=== PATIENT | male | born 1940 | race Caucasian/White ===

== ENCOUNTER → 2017-09-06 | Outpatient (CLI) | payer BC ==
[2017-09-06 12:31] LABS: ALBUMIN 3.7 gm/dl (3.4-5.0); ALT/SGPT 41 U/L (12-78); BLOOD UREA NITROGEN 21 mg/dl (7-18); CALCIUM 9.1 mg/dl (8.5-10.1); CARBON DIOXIDE 28 mmol/L (21-32); CREATININE 1.16 mg/dl (0.60-1.40); GLUCOSE 159 mg/dl (70-99); POTASSIUM 3.9 mmol/L (3.5-5.1); SODIUM 141 mmol/L (136-145)
[2017-09-06 12:32] LABS: HEMOGLOBIN A1C 5.7 % (4.5-5.6)
[2017-09-06 12:44] LABS: ALKALINE PHOSPHATASE 56 U/L (45-117); AST/SGOT 24 U/L (15-37); CHOLESTEROL 237 mg/dl (0-200); LDL CHOLESTEROL CALCULATED 159 mg/dl; TOTAL PROTEIN 6.9 gm/dl (6.4-8.2)
== END | disposition home or self-care (01) ==
LOC: C.LAB1850 10:58
PROVIDERS: ATTEND Physician Assistant
DX: E11.9 Type 2 diabetes mellitus without complications (principal)

== ENCOUNTER 2021-11-21 16:35 | Inpatient (IN) ==
[2021-11-21] MEDS ORDERED: Heparin IV Adult Wt-Based Standard WITH Bolus Protocol IV SCH (19:52)
[2021-11-21] MEDS ORDERED: Patient's HEIGHT &/or WEIGHT Needed SCH (20:00)
[2021-11-21] MEDS ORDERED: HEPARIN SOD (PORCINE) 1000 UNIT/ML IV ONE ×2 (20:01→20:24)
[2021-11-21] MEDS ORDERED: Heparin IV Adult Wt-Based Low-Dose WITH Bolus Protocol IV STA (20:08)
[2021-11-21] MEDS ORDERED: Heparin IV Adult Wt-Based Low-Dose *NO* Bolus Protocol IV SCH (20:13)
[2021-11-21] MEDS ORDERED: HEPARIN SODIUM/DEXTROSE 25,000 UNITS/500 ML BAG IV SCH ×2 (20:15→20:30)
[2021-11-21] MEDS: HEPARIN SODIUM/DEXTROSE 25,000 UNITS/500 ML BAG IV SCH (20:43)
[2021-11-21 20:52] LABS: Partial Thromboplastin Ratio 1.3; Partial Thromboplastin Time 36.3 Seconds (21.0-31.0)
--- NOTE | 2021-11-21 20:59 | History & Physical Report ---
Date of Service November 21, 2021 Assessment & Plan (1) NSTEMI (non-ST elevated myocardial infarction): Plan: 81yo male with T2DM presents as a transfer from [facility] for NSTEMI. NSTEMI Patient with CP at OSH a/w rising hsTroponin levels, has multiple risk factors VSS, EKG NSR, echo at OSH (11/21/2021) EF 55-59% without overt wall motion abnormalities Transferred to [facility] for PCI with Dr. Díaz Admit to telemetry Heparin gtt per protocol Oxygen, nitrates, analgesia as needed Brillinta 90mg bid Lopressor 50mg bid Of note, patient refused aspirin d/t concern for possible allergy NPO at midnight ahead of scheduled PCI DM2 HbA1c 5.9% (04/2020), repeat value ordered Patient's home regimen held on admission Continue BSG checks, sliding-scale insulin, hypoglycemic protocol HLD Patient with history of HLD which he treats with vitamins/herbs Is resistant to statin therapy, says statins gave him DM2 Repeat fasting lipid profile in AM, revisit conversation with patient based on results FEN: DM2, heart-healthy diet, NPO at midnight Code status: full code DVT ppx: heparin gtt Consults: cardiology Dispo: telemetry (2) Type 2 diabetes mellitus: (3) BPH (benign prostatic hyperplasia): (4) Hyperlipidemia: Admission and Anticipated Discharge Date Admission Date: November 21, 2021 History of Present Illness Primary Care Provider: Yasir Shine MD 81yo male with T2DM presents as a transfer from [facility] for NSTEMI. Yesterday, patient was doing work in his yard when he felt a sudden pain in his right shoulder, about 3/10 in severity, which radiated into his right chest. Patient also experienced some fatigue at the time, and his commented that he looked pale. Patient rested and the pain went away after about an hour. The pain recurred twice more later in the day, both times with the same quality, severity, and duration; however, the second two episodes occurred at rest. Patient monitored his pulse ox and BSG throughout the day and reports these were normal all day. However, out of concern, patient's called EMS, who recommended hospital workup after noting patient was hypertensive to 170/80. At OSH, patient was diagnosed with NSTEMI and then transferred to [facility] on 11/21. Patient notes his symptoms have not returned since the third episode resolved on 11/20. Patient denies fever, chills, SOB, abdominal pain, nausea, vomiting, diarrhea, dysuria, or other symptoms, both now and over the past few days. At OSH: vitals stable, initial troponin 216, repeat one hour later was 247 EKG: NSR Echo (11/21/21 at OSH): LVEF 55-59%, no LV wall motion abnormalities, mild MR, mild TR present At OSH, patient received: Lopressor 50mg bid (final dose 11/21 at 0420) Brillinta 90mg bid (final dose 11/21 at 0818) No aspirin (patient refused, says statins caused him to develop DM2) Allergies Allergy/AdvReac Type Severity Reaction Status Date / Time NSAIDS (Non-Steroidal Allergy Unknown Verified 04/21/21 11:00 Anti-Inflamma latex Allergy Verified 04/21/21 11:00 Home Medications Medication Instructions Recorded Confirmed Type alpha lipoic acid 600 mg capsule 1,200 mg PO DAILY #60 cap 05/05/19 04/21/21 Rx biotin 1 mg capsule 1 mg PO DAILY #30 cap 05/05/19 04/21/21 Rx cholecalciferol (vitamin D3) 25 1,000 units PO DAILY #30 tab 05/05/19 04/21/21 Rx mcg (1,000 unit) chewable tablet coenzyme Q10 100 mg capsule 100 mg PO DAILY #30 cap 05/05/19 04/21/21 Rx (CoQ-10) niacin 500 mg tablet 500 mg PO DAILY #30 tab 05/05/19 04/21/21 Rx vit C,E,zinc,copper-rjbov0p 250 1 cap PO DAILY #30 cap 05/05/19 04/21/21 Rx mg-lutein 5 mg-zeaxanthin 1 mg capsule (Ocuvite Adult 50 Plus) NAD plus PO 04/19/20 04/21/21 History krill oil 500 mg capsule mg PO 04/19/20 04/21/21 History magnesium PO 04/19/20 04/21/21 History potassium 99 mg tablet mg PO 04/19/20 04/21/21 History insulin glargine U-300 conc 300 15 unit SQ PM 90 Days #4.5 ml 03/22/21 04/21/21 Rx unit/mL (1.5 mL) subcutaneous pen (Toujeo SoloStar U-300 Insulin) berberine-herbal comb no.18 capsule cap PO 04/21/21 04/21/21 History flash glucose sensor (FreeStyle #2 ea 05/09/21 Rx Kim 2 Sensor) BD Ultra-Fine Cherri Pen Needle 32 #100 ea NS 06/07/21 Rx gauge x 5/32" (pen needle, diabetic) Past Med/Surg History Medical History (Updated 11/21/21 @ 22:16 by Bob Inman MD) Basal cell carcinoma Chronic sinusitis Hematuria Nasal polyp Rectal polyp Surgical History Status post nasal endoscopy with nasal polypectomy Family History Mother Acute alcohol abuse Father Carotid artery stenosis Stroke Grandmother (Maternal) Diabetes Brother Hyperlipidemia Social History Smoking Status: Never smoker Second Hand Exposure: No; Do You Dip or Chew Tobacco: No; Tobacco Cessation Education Requested by Patient: No Hx Alcohol Use: Yes Alcohol type: beer Hx Substance Use: No Preferred Language: Mozambican Communication Ability: Effective Timber Grader Required: No Beliefs That Will Affect Care: None marital status: Current Living Situation: Spouse Current Living Situation Comment: Home with How many Children do You have: 2 Other Information That Helps Us Care for You: No Feels Safe at Home: Yes Safety Concerns: Feels Safe At This Time Assistive Devices: None Physical Exam Physical Exam: Constitutional: well-appearing, no acute distress CV: regular rhythm, no murmur appreciated, extremities well-perfused, no LE edema Resp: CTABL, no wheezes/rales/rhonchi appreciated, no increased work of breathing GI: soft, nontender MSK: no gross deformities appreciated Skin: warm, dry, no rash appreciated Neuro: alert, oriented, no focal neurologic deficit appreciated Results & Data Results & Data ([facility]) Vital Signs (Past 12 Hours) Vital Signs Temp Pulse Resp BP Pulse Ox 11/21/21 20:08 36.7 C 67 18 128/87 98 Supervising Physician Co-Signing Physician Notes Attending addendum: I have physically seen this patient, have supervised the medical residents activities, and agree with the H&P unless as otherwise noted. Assessment and Plan: NSTEMI- Accepted in transfer from [facility] The patient will be admitted to telemetry for serial cardiac enzymes, serial EKG's, cardiac rhythm monitoring and a 2-D echocardiogram with Dopplers. Continue heparin drip per protocol Lopressor 50 mg p.o. twice daily Brilinta 90 mg p.o. twice daily Consult cardiology Dr. Díaz, who has already accepted the patient Diabetes mellitus- Hold glargine 15 units subcu in the evening Place on Accu-Cheks before meals and at bedtime with NovoLog coverage per scale Remaining orders and notations as noted Resident Activity Tracking Resident Involvement: Resident Care Provided and Job Counselor Coverage Note Care Provided: Adult Hospital Medicine
[2021-11-21] MEDS ORDERED: NITROGLYCERIN SL 0.4 MG/TAB TAB SL PRN (21:40)
[2021-11-21] MEDS ORDERED: ACETAMINOPHEN 325 MG TAB PO PRN (21:40)
[2021-11-21 22:39] LABS: Basophils # (auto) 0.02 K/uL (0-0.2); Basophils % (auto) 0.3 %; Eosinophils # (auto) 0.14 K/uL (0-0.5); Eosinophils % (auto) 1.8 %; Hematocrit (blood only) 43.9 % (42-52); Hemoglobin 15.1 g/dL (14.0-18.0); Immature Granulocytes # (auto) 0.02 K/uL (0.00-0.02); Immature Granulocytes % (auto) 0.3 %; Lymphocytes # (auto) 1.68 K/uL (1.2-3.4); Lymphocytes % (auto) 21.5 %; Mean Corpuscular Hemoglobin 29.9 pg (25-34); Mean Corpuscular Hgb Conc 34.4 g/dL (32-36); Mean Corpuscular Volume 86.9 fL (80-100); Mean Platelet Volume 9.1 fL (7.4-10.4); Monocytes # (auto) 0.57 K/uL (0.11-0.59); Monocytes % (auto) 7.3 %; Neutrophils # (auto) 5.37 K/uL (1.4-6.5); Neutrophils % (auto) 68.8 %; Platelet Count 159 K/uL (130-400); RDW Coefficient of Variation 13.9 % (11.5-14.5); RDW Standard Deviation 43.5 fL (36.4-46.3); Red Blood Count 5.05 M/uL (4.7-6.1)
[2021-11-21] MEDS: METOPROLOL TARTRATE 50 MG TAB PO SCH (23:04)
[2021-11-21] MEDS: TICAGRELOR 90 MG TAB PO SCH (23:04)
[2021-11-21 23:15] LABS: Albumin Globulin Ratio 1.6 (0.9-2); Albumin Level 4.1 gm/dl (3.4-5.0); BUN Creatinine Ratio 13.3 (10-20); Bilirubin,Total 0.5 mg/dl (0.2-1.0); Calcium 9.3 mg/dl (8.5-10.1); Creatinine Clr Calc Pharmacy 59.9 ml/min; Est GFR (African American) 71.3 ml/min; Est GFR (Non-African American) 61.5 ml/min; Globulin 2.5 gm/dl (2.5-4.0); Phosphorus 3.5 mg/dl (2.5-4.9); Potassium 3.7 mmol/L (3.5-5.1); Total Protein 6.6 gm/dl (6.0-8.3)
[2021-11-21 23:20] LABS: Troponin I High Sensitivity 10855.5 pg/ml (0-20)
[2021-11-22 03:31] LABS: Basophils # (auto) 0.02 K/uL (0-0.2); Basophils % (auto) 0.3 %; Eosinophils # (auto) 0.14 K/uL (0-0.5); Hemoglobin 14.1 g/dL (14.0-18.0); Immature Granulocytes # (auto) 0.01 K/uL (0.00-0.02); Immature Granulocytes % (auto) 0.1 %; Lymphocytes # (auto) 1.52 K/uL (1.2-3.4); Lymphocytes % (auto) 21.2 %; Mean Corpuscular Hemoglobin 29.6 pg (25-34); Mean Corpuscular Hgb Conc 34.4 g/dL (32-36); Mean Platelet Volume 8.9 fL (7.4-10.4); Monocytes # (auto) 0.81 K/uL (0.11-0.59); Monocytes % (auto) 11.3 %; Neutrophils # (auto) 4.67 K/uL (1.4-6.5); Neutrophils % (auto) 65.1 %; Platelet Count 150 K/uL (130-400); RDW Coefficient of Variation 13.7 % (11.5-14.5); RDW Standard Deviation 43.5 fL (36.4-46.3); Red Blood Count 4.77 M/uL (4.7-6.1); White Blood Count 7.17 K/uL (4.8-10.8)
[2021-11-22 03:41] LABS: Partial Thromboplastin Ratio 1.4; Partial Thromboplastin Time 38.5 Seconds (21.0-31.0)
[2021-11-22 03:53] LABS: Est GFR (African American) 78.8 ml/min; Potassium 3.8 mmol/L (3.5-5.1)
[2021-11-22 03:54] LABS: BUN Creatinine Ratio 16.3 (10-20); Calcium 8.9 mg/dl (8.5-10.1); Creatinine Clr Calc Pharmacy 65.1 ml/min
[2021-11-22 06:22] LABS: Estimated Average Glucose 137 mg/dl; Hemoglobin A1C 6.4 % (4.5-5.6)
--- NOTE | 2021-11-22 08:19 | Pre Anesthesia Assessment ---
Date of Service November 22, 2021 Pre Sedation Assessment Vital Signs Temp Pulse Pulse Resp BP Pulse Ox 11/22/21 05:07 98.1 F 70 18 133/80 94 11/21/21 23:05 98.2 F 94 H 18 136/84 96 11/21/21 22:30 71 11/21/21 20:08 98.1 F 67 18 128/87 98 11/21/21 20:00 59 L Cardiovascular RRR, no murmur, no edema Respiratory normal respiratory effort, lungs clear to auscultation Pre-Sedation Airway Assessment Smoking Status: Never smoker Hx Sleep Apnea: No Hx Difficult Intubation: No Short, Thick Neck: No Thyromental Distance: > or= 3.5 Finger Breadths Oral Cavity: + WNL Mallampati Class: III ASA: ASA3 NPO Status Date of Last Intake of Fluids: 11/21/21 Date of Last Intake of Solid Food: 11/21/21 Procedure Planning Contraindications for Sedation: none Current Medications Reviewed: Yes Notes The planned sedation has been discussed with the patient. Informed Consent was obtained. I have identified the patient, determined the appropriateness of sedation and have assessed the patient immediately prior to the procedure. All medicine(s) and interventions are by my order.
[2021-11-22] MEDS ORDERED: MIDAZOLAM HCL 1 MG/ML 2ML VIAL ONE (08:24)
[2021-11-22] MEDS ORDERED: HEPARIN (PORCINE) 1000 UNIT/ML 10 ML (CATH LAB USE ONLY) ONE (08:25)
[2021-11-22] MEDS ORDERED: niCARdipine HCL INJ 2.5 MG/ML 10 ML AMP ONE (08:25)
[2021-11-22] MEDS ORDERED: fentaNYL citrate 100 MCG/2 ML VIAL ONE (08:25)
[2021-11-22] MEDS ORDERED: NITROGLYCERIN/D5W 100MCG/ML 20ML SYR ONE (08:27)
--- NOTE | 2021-11-22 08:35 | Cardiology Consultation ---
Date of Consultation November 22, 2021 Assessment & Plan (1) NSTEMI (non-ST elevated myocardial infarction): 2. Type 2 diabetes 3. Dyslipidemia Patient here with high risk NSTEMI and recommend proceeding with cardiac catheterization for further risk stratification. Discussed procedure including risk, benefits with patient and he is willing to proceed. Further recommendations pending findings of coronary angiography. History of Present Illness Attending Physician: Antwan Plummer DO History of Present Illness Mr. Teague is a very pleasant 81-year-old man with a history of type 2 diabetes, dyslipidemia transferred to [facility] in the setting of NSTEMI. No prior cardiac history. Patient active at baseline and was doing yard work 2 days ago when developed right shoulder pain, diaphoresis and home elevated blood pressures. No chest pain. Had multiple episodes which recurred with attempted exertion. Presented to [facility] where hstrop mildly elevated in the 200s. Initial plan was to transfer to [place] but bed unavailable. Since hospitalization patient has been chest pain-free. Has had no recurrent shoulder pain. Initial troponin on arrival here >10,000. ECG showed normal sinus rhythm with possible anteroseptal infarct, no dynamic ST changes. Echocardiogram at [place] showed normal LV function with no regional wall motion abnormalities. Family history: No premature CAD Social history: Retired previously worked in [employer] in [place]. . Denies tobacco or significant alcohol use. Allergies Allergy/AdvReac Type Severity Reaction Status Date / Time NSAIDS (Non-Steroidal Allergy Unknown Verified 04/21/21 11:00 Anti-Inflamma latex Allergy Verified 04/21/21 11:00 Home Medications Medication Instructions Recorded Confirmed Type alpha lipoic acid 600 mg capsule 1,200 mg PO DAILY #60 cap 05/05/19 04/21/21 Rx biotin 1 mg capsule 1 mg PO DAILY #30 cap 05/05/19 04/21/21 Rx cholecalciferol (vitamin D3) 25 1,000 units PO DAILY #30 tab 05/05/19 04/21/21 Rx mcg (1,000 unit) chewable tablet coenzyme Q10 100 mg capsule 100 mg PO DAILY #30 cap 05/05/19 04/21/21 Rx (CoQ-10) niacin 500 mg tablet 500 mg PO DAILY #30 tab 05/05/19 04/21/21 Rx vit C,E,zinc,copper-aogvp8l 250 1 cap PO DAILY #30 cap 05/05/19 04/21/21 Rx mg-lutein 5 mg-zeaxanthin 1 mg capsule (Ocuvite Adult 50 Plus) NAD plus PO 04/19/20 04/21/21 History krill oil 500 mg capsule mg PO 04/19/20 04/21/21 History magnesium PO 04/19/20 04/21/21 History potassium 99 mg tablet mg PO 04/19/20 04/21/21 History insulin glargine U-300 conc 300 15 unit SQ PM 90 Days #4.5 ml 03/22/21 04/21/21 Rx unit/mL (1.5 mL) subcutaneous pen (Toujeo SoloStar U-300 Insulin) berberine-herbal comb no.18 capsule cap PO 04/21/21 04/21/21 History flash glucose sensor (FreeStyle #2 ea 05/09/21 Rx Kim 2 Sensor) BD Ultra-Fine Cherri Pen Needle 32 #100 ea NS 06/07/21 Rx gauge x 5/32" (pen needle, diabetic) Patient History Medical History (Updated 11/21/21 @ 22:16 by Bob Inman MD) Basal cell carcinoma Chronic sinusitis Hematuria Nasal polyp Rectal polyp Surgical History Status post nasal endoscopy with nasal polypectomy Family History Mother Acute alcohol abuse Father Carotid artery stenosis Stroke Grandmother (Maternal) Diabetes Brother Hyperlipidemia Social History Smoking Status: Never smoker Second Hand Exposure: No; Do You Dip or Chew Tobacco: No; Tobacco Cessation Education Requested by Patient: No Hx Alcohol Use: Yes Alcohol type: beer Hx Substance Use: No Preferred Language: Hungarian Communication Ability: Effective Customer Response Representative Required: No Beliefs That Will Affect Care: None marital status: Current Living Situation: Spouse Current Living Situation Comment: Home with How many Children do You have: 2 Other Information That Helps Us Care for You: No Feels Safe at Home: Yes Safety Concerns: Feels Safe At This Time Assistive Devices: None Review of Systems Review of Systems: All systems reviewed & are unremarkable except as noted in HPI & below Physical Exam Physical Exam: General: Comfortable HEENT: Sclerae anicteric Lungs: Clear to auscultation bilaterally, no crackles or wheezes Cardiac: Regular rate and rhythm, no murmurs. Vascular: 2+ radial, DP pulses. No bruits Abdomen: Soft, nontender Extremities: Well perfused, no peripheral edema Neuro: Nonfocal Psych: Alert orient x3, normal affect and mood Results & Data ([facility]) Vital Signs (Past 12 Hours) Vital Signs Temp Pulse Pulse Resp BP Pulse Ox 11/22/21 05:07 98.1 F 70 18 133/80 94 11/21/21 23:05 98.2 F 94 H 18 136/84 96 11/21/21 22:30 71 PG Care Time/CCT Total # of Minutes Spent Total Time Spent with Patient: Total time spent is greater than 50% in coordination of care (as documented) at patient's floor/unit and/or counseling patient: Coding Level of Care Code 10613 Initial Inpt Care Lvl 3 Diagnoses NSTEMI (non-ST elevated myocardial infarction) I21.4
[2021-11-22] MEDS ORDERED: ATROPINE SULFATE 0.1 MG/ML 10ML SYR IV ONE (09:01)
--- NOTE | 2021-11-22 09:40 | Post Anesthesia Assessment ---
Date of Service November 22, 2021 Post Sedation Assessment Vital Signs Temp Pulse Pulse Resp BP Pulse Ox 11/22/21 05:07 98.1 F 70 18 133/80 94 11/21/21 23:05 98.2 F 94 H 18 136/84 96 11/21/21 22:30 71 11/21/21 20:08 98.1 F 67 18 128/87 98 11/21/21 20:00 59 L Recovery Score Activity: Moves 4 extremities Respiration: Deep Breath/Cough Circulation: +/-20% PreAnes Value Consciousness: Fully Awake Oxygen Saturation: O2 needed for >90% Discharge Sedation Level of Care: Fast Track Phase II Post Sedation Plan On clinical assessment, the patient appears to have tolerated the sedation without complications. Patient is recovering as anticipated. Patient will continue to be monitored by nursing and may be discharged when sedation discharge criteria are met per below protocol. Upon Completions of procedure up to 15 minutes continue every 5 minute vital signs and the P.A.R. score; then discharge to a Phase I or Fast Track to Phase II per the following guidelines: * Discharge Patient to appropriate Phase II area if PAR is 8 or greater or return to pre- procedure baseline. The post - procedure orders will be as directed. * If PAR score is less than 8 or not return to pre-procedure baseline then patient will follow Phase I monitoring till PAR is reached for Phase II. The Phase I may be done in procedure room or may call to secure a Phase I area. * If naloxone or flumazenil are used for reversal, hold in Phase I for continued monitoring from when last reversal dose was given for a minimum of 60 minutes or longer pending the nurse and/or physician discretion of patient condition before discharge to Phase II. Please call the Sedation Physician to re-evaluate and complete post-note for discharge to Phase II area. Do NOT discharge from procedure sedation or Phase 1 until post- sedation evaluation note is complete by procedure /sedation MD Sedation Discharge Instructions to be given to the patient at discharge to home.
--- NOTE | 2021-11-22 09:56 | Cardiac Catheterization ---
[facility] Data: Bilingual Manager Cardiac Status Clinical evaluation leading to the procedure CAD Presenation: Non STEMI Anginal Classification: CCS IV Diagnostic Physicians Name: Usman Díaz MD Closure Device Recommendations: Medical Therapy and/or Counseling Cardiac Cath Procedure Full Procedure Date November 22, 2021 Pre-Procedure Diagnosis Pre-Procedure Diagnosis: Non STEMI AUC Score AUC Score: 8 Post-Procedure Diagnosis Post-Procedure Diagnosis: Severe CAD and Normal Intracardiac Pressures Procedure(s) Performed Procedure(s) Performed: Coronary Angiography and Left Heart Cath Circular Ripsaw Operator Usman Díaz MD Machine Baster(s) Parish Estimated Blood Loss Estimated Blood Loss: 10 Medication(s) Medication(s): Fentanyl, Heparin, Lidocaine 1%, Nicardipine, Nitroglycerin and Versed Summary of Findings Indication: High risk NSTEMI Access: 6 Fr right radial artery Catheters: Deerton, diagnostic JL 3.5, JR4 guide Findings: LM -normal caliber, no significant disease LAD -medium caliber, 60% mid segment stenosis after takeoff of first septal, diffuse 40% latemid/distal disease. Distal vessel small and tapers to apex. Small D1 without disease. Circumflex -dominant, large caliber, no significant disease. Gives off 3 medium caliber OM's without significant disease. RCA -nondominant, 100% mid occlusion. Faint [id number] collaterals to RV branch. LVEDP -11 -- Attempted PCI of mid RCA occlusion- Antithrombotic therapy: Heparin Procedure: RCA cannulated with JR4 Pre-procedure flow RIYA 0 Quality Process Auditor 50 wire passed across lesion into distal vessel Unable to pass 2.0 balloon across proximal vessel despite aid of a GuideLiner RCA rewired with BMW wire Able to pass 1.5 balloon but decision made to abort procedure as patient completely chest pain-free with normal inferior wall motion abnormality and symptom duration >24 hours. Arterial Closure: TR band Summary: 1. Acute on chronic mid nondominant RCA occlusion with [id number] collaterals 2. Moderate nonculprit coronary artery disease -60% mid LAD, 40% diffuse disease in small distal LAD 3. Normal intracardiac filling pressure Recommendations: As >24 hours out from [place] and currently asymptomatic recommend medical management of nondominant RCA occlusion Continue heparin for 48 hours Trend troponin until peak and repeat echocardiogram Transition ticagrelor to clopidogrel and continue for 1 year Continue statin, and ASCVD risk factor modification Consult cardiac Rehab Hemodynamics Rest Ao:: 113/53/81 Final Ao: 124/47/75 LV: 117/11 Recommendations Recommendations: Medical Therapy and/or Counseling Specimens Specimens: None Radiation Exposure (mGy) 3051 Contrast (mls) 55 Anesthesia Moderate 0719-5127 Procedural Complication(s) None Disposition PCU I attest to the content of the Intraoperative Record and any orders documented therein. Any exceptions are noted below. [facility] Card Cath Procedure Codes Cardiac Catheterization Procedure 1: Cardiovascular Cath Procedures: 97446 Coronaries and LHC (+/-LV) Moderate Sedation Procedure 1: Sedation/Anesthesia: 99050 Mod Sedation by the same physician;Init15 Min Child Age 5 & Up Procedure 2: Sedation/Anesthesia: 28947 Mod Sedation by the same physician; Ea [id number] Minutes Angioplasty Procedure 1: Cardiovascular Angioplasty Procedures: 07154 PTCA; Single mafor coronary artery or branch RC LC LD PG Care Time/CCT Total # of Minutes Spent Total Time Spent with Patient: Total time spent is greater than 50% in coordination of care (as documented) at patient's floor/unit and/or counseling patient:
[2021-11-22] MEDS ORDERED: SODIUM CHLORIDE 0.9% 1000ML 500 ML IV SCH (10:00)
[2021-11-22] MEDS: METOPROLOL TARTRATE 50 MG TAB PO SCH ×2 (11:03→22:21)
[2021-11-22] MEDS: TICAGRELOR 90 MG TAB PO SCH (11:04)
[2021-11-22 11:15] LABS: Partial Thromboplastin Ratio 4.4
[2021-11-22 11:29] LABS: Partial Thromboplastin Time 120.1 Seconds (21.0-31.0)
--- NOTE | 2021-11-22 12:44 | Hospitalist Progress Note ---
Date of Service November 22, 2021 Assessment & Plan (1) NSTEMI (non-ST elevated myocardial infarction): Plan: 81yo male with T2DM and HLD presents as a transfer from [facility] for NSTEMI. NSTEMI Patient with CP at OSH a/w rising hsTroponin levels, has multiple risk factors. hsTrop 49287 at admission VSS, EKG NSR, echo at OSH (11/21/2021) EF 55-59% without overt wall motion abnormalities Transferred to [facility] for PCI with Dr. Díaz Heparin gtt Lopressor 50mg bid Of note, patient refused aspirin d/t concern for possible allergy PCI (From cardiology report) 1. 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 Moderate nonculprit coronary artery disease -60% mid LAD, 40% diffuse disease in small distal LAD 3. Normal intracardiac filling pressure Continue beta violet. Transitioning from Brilinta to Plavix. Heparin drip for 48 hours. DM2 HbA1c 5.9% (04/2020), repeat value 6.4 this admission Check BSG ACHS. No SSI indicated at this time HLD Patient with history of HLD which he treats with vitamins/herbs Is resistant to statin therapy, says statins gave him DM2 LDL 110, not at goal (<70) FEN: DM2, heart-healthy diet Code status: full Anticoag: heparin gtt Dispo: PCU (2) Type 2 diabetes mellitus: (3) BPH (benign prostatic hyperplasia): (4) Hyperlipidemia: Admission and Anticipated Discharge Date Admission Date: November 21, 2021 Supervising Physician Co-Signing Physician Notes I personally examined the patient and verified all anderson points of history and exam, discussed case, and agree with decision making with Dr Richmond Feeling okay. No chest pain or shortness of breath generally feels well. Discussed diet and exercise. Vitals noted, in general he is awake and alert pleasant no distress. HEENT normocephalic atraumatic mucous membranes moist. Breathing unlabored no accessory muscle use good effort. Skin shows no rashes no pallor or icterus. Neuro without focal deficits. NSTEMImed management, secondary risk reduction. Appreciate cardiology input. Otherwise as above. Subjective Patient was seen at bedside in the afternoon, after the cardiac cath. He denies chest pain or SOB. He states he went to the outside ED/hosp ([facility]) for high blood pressure and tachycardia. He was transferred to [facility] for NSTEMI. Patient states he is a never smoker and has a balanced diet and lifestyle. Daily physical yard work and labor. He eats mostly whole grains w/ eggs and fruits. Review of Systems Review of Systems: All systems reviewed & are unremarkable except as noted in HPI & below Physical Exam Physical Exam: General: Grossly A&O. NAD. Cooperative. HEENT: Atraumatic, normocephalic. EOMI Pulm: CTAB. -wheezes, -rales, -rhonchi. No respiratory distress. Cardiac: RRR, -mrg. Abdominal: Nontender, nondistended, soft. Integ: No bleeding at radial sites. Results & Data Results & Data ([facility]) Vital Signs (Past 12 Hours) Vital Signs Temp Pulse Resp BP BP Pulse Ox 11/22/21 11:41 36.5 C 65 18 132/74 97 11/22/21 11:11 36.4 C L 72 20 134/77 97 11/22/21 10:41 36.6 C 74 20 128/67 11/22/21 10:15 63 14 144/69 H 95 11/22/21 10:00 65 14 140/74 95 11/22/21 09:45 67 14 143/84 H 97 11/22/21 05:07 36.7 C 70 18 133/80 94 Resident Activity Tracking Resident Involvement: Resident Care Provided Care Provided: Adult Hospital Medicine
--- NOTE | 2021-11-22 13:07 | XCELERA ---
[id number]
--- NOTE | 2021-11-22 13:26 | Electrocardiogram Report ---
Test Reason : Blood Pressure : / mmHG Vent. Rate : 062 BPM Atrial Rate : 062 BPM P-R Int : 184 ms QRS Dur : 104 ms QT Int : 432 ms P-R-T Axes : 026 005 061 degrees QTc Int : 438 ms Normal sinus rhythm Possible Inferior infarct (cited on or before 27-AUG-2002) Anteroseptal infarct (cited on or before 27-AUG-2002) Anterior injury pattern Abnormal ECG When compared with ECG of 27-AUG-2002 13:39, Anterior injury pattern now present Confirmed by Yasir Mckenzie ([id number]) on 11/22/2021 1:26:32 PM Referred By: Bola Jaimes Confirmed By:Yasir Mckenzie
--- NOTE | 2021-11-22 13:36 | Electrocardiogram Report ---
Test Reason : Blood Pressure : / mmHG Vent. Rate : 068 BPM Atrial Rate : 068 BPM P-R Int : 172 ms QRS Dur : 108 ms QT Int : 418 ms P-R-T Axes : 056 -01 078 degrees QTc Int : 444 ms Normal sinus rhythm Inferior infarct (cited on or before 27-AUG-2002) Anteroseptal infarct (cited on or before 27-AUG-2002) Anterior injury pattern Abnormal ECG When compared with ECG of 21-NOV-2021 21:20, (unconfirmed) No significant change was found Confirmed by Yasir Mckenzie ([id number]) on 11/22/2021 1:35:36 PM Referred By: Bola Jaimes Confirmed By:Yasir Mckenzie
[2021-11-22 16:03] LABS: Partial Thromboplastin Time 28.1 Seconds (21.0-31.0)
--- NOTE | 2021-11-22 18:25 | Billing Data ---
Date of Service November 22, 2021 Coding Level of Care Code 52663 Subseq Hosp Care Lvl 3
--- NOTE | 2021-11-22 18:25 | Billing Data ---
Date of Service November 22, 2021 Coding Level of Care Code 82122 Subseq Hosp Care Lvl 3
[2021-11-22] MEDS ORDERED: ATORVASTATIN 40 MG TAB PO SCH (19:00)
[2021-11-22] MEDS ORDERED: CARBOHYDRATES FOR HYPOGLYCEMIA PO PRN (21:03)
[2021-11-22] MEDS ORDERED: DEXTROSE 50% 50 ML SYRINGE IV PRN (21:03)
[2021-11-22] MEDS ORDERED: GLUCOSE 40% GEL 15 GM TUBE PO PRN (21:03)
[2021-11-22] MEDS ORDERED: GLUCOSE 10 TABS/TUBE PO PRN (21:03)
[2021-11-22] MEDS ORDERED: GLUCAGON FOR INJ 1 MG VIAL SQ PRN (21:03)
[2021-11-22 21:45] LABS: Partial Thromboplastin Ratio 1.1; Partial Thromboplastin Time 31.6 Seconds (21.0-31.0)
[2021-11-22] MEDS ORDERED: HEPARIN IV BOLUS 3,000 UNITS in SYRINGE 0 ML IV ONE (22:45)
[2021-11-22] MEDS ORDERED: CLOPIDOGREL BISULFATE 300 MG TAB PO ONE (23:00)
[2021-11-23] MEDS: HEPARIN SODIUM/DEXTROSE 25,000 UNITS/500 ML BAG IV SCH (02:16)
--- NOTE | 2021-11-23 04:07 | Billing Data ---
Date of Service November 23, 2021 Coding Level of Care Code 81850 Initial Inpt Care Lvl 3
[2021-11-23 06:55] LABS: Hematocrit (blood only) 39.9 % (42-52); Hemoglobin 13.8 g/dL (14.0-18.0); Mean Corpuscular Hemoglobin 30.1 pg (25-34); Mean Corpuscular Hgb Conc 34.6 g/dL (32-36); Mean Corpuscular Volume 87.1 fL (80-100); Mean Platelet Volume 8.7 fL (7.4-10.4); Platelet Count 147 K/uL (130-400); RDW Coefficient of Variation 13.9 % (11.5-14.5); RDW Standard Deviation 43.9 fL (36.4-46.3); Red Blood Count 4.58 M/uL (4.7-6.1); White Blood Count 6.53 K/uL (4.8-10.8)
[2021-11-23 07:12] LABS: BUN Creatinine Ratio 16.8 (10-20); Calcium 8.8 mg/dl (8.5-10.1); Creatinine Clr Calc Pharmacy 59.8 ml/min; Est GFR (African American) 71.3 ml/min; Est GFR (Non-African American) 61.5 ml/min; Potassium 4.2 mmol/L (3.5-5.1)
[2021-11-23 07:48] LABS: Partial Thromboplastin Time 54.3 Seconds (21.0-31.0)
[2021-11-23] MEDS: METOPROLOL TARTRATE 50 MG TAB PO SCH (08:08)
[2021-11-23] MEDS: INSULIN ASPART PER UNIT SC SCH ×2 (08:10→12:04)
--- NOTE | 2021-11-23 08:46 | Communication Note ---
Date of Service: November 23, 2021 Patient has not been given any statin this admission because patient declining Lipitor though he states he received some at the outside hospital. However, per discussion this morning, agreeable to rosuvastatin (Crestor). 20mg qam rosuvastatin will be ordered.
[2021-11-23] MEDS ORDERED: ATORVASTATIN 40 MG TAB PO SCH (09:00)
[2021-11-23] MEDS ORDERED: ROSUVASTATIN CALCIUM 20 MG TAB PO SCH (09:00)
--- NOTE | 2021-11-23 09:39 | Hospitalist Progress Note ---
Date of Service November 23, 2021 Assessment & Plan (1) NSTEMI (non-ST elevated myocardial infarction): Plan: 81yo male with T2DM and HLD presents as a transfer from [facility] for NSTEMI. NSTEMI Patient with CP at OSH a/w rising hsTroponin levels, has multiple risk factors. hsTrop 72614 at admission VSS, EKG NSR, echo at OSH (11/21/2021) EF 55-59% without overt wall motion abnormalities Transferred to [facility] for PCI with Dr. Díaz Heparin gtt Lopressor 50mg bid Of note, patient refused aspirin d/t concern for possible allergy PCI (From cardiology report) 1. 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 Moderate nonculprit coronary artery disease -60% mid LAD, 40% diffuse disease in small distal LAD 3. Normal intracardiac filling pressure Continue beta violet. Transitioning from Brilinta to Plavix. Heparin drip for 48 hours. DM2 HbA1c 5.9% (04/2020), repeat value 6.4 this admission Check BSG ACHS. No SSI indicated at this time HLD Patient with history of HLD which he treats with vitamins/herbs Is resistant to statin therapy, says statins gave him DM2 LDL 110, not at goal (<70) FEN: DM2, heart-healthy diet Code status: full Anticoag: heparin gtt Dispo: PCU (2) Type 2 diabetes mellitus: (3) BPH (benign prostatic hyperplasia): (4) Hyperlipidemia: Admission and Anticipated Discharge Date Admission Date: November 21, 2021 Review of Systems Review of Systems: All systems reviewed & are unremarkable except as noted in HPI & below Physical Exam Physical Exam: General: Grossly A&O. NAD. Cooperative. HEENT: Atraumatic, normocephalic. EOMI Pulm: CTAB. -wheezes, -rales, -rhonchi. No respiratory distress. Cardiac: RRR, -mrg. Results & Data Results & Data ([facility]) Vital Signs (Past 12 Hours) Vital Signs Temp Pulse Pulse Resp BP Pulse Ox 11/23/21 07:40 36.9 C 67 20 137/73 97 11/23/21 02:58 36.6 C 62 18 127/75 97 06/22/22 00:00 73 11/22/21 23:13 36.7 C 63 18 123/70 97 11/22/21 22:25 153/79 H Resident Activity Tracking Resident Involvement: Resident Care Provided Care Provided: Adult Hospital Medicine
--- NOTE | 2021-11-23 09:54 | Cardiology Progress Note ---
Date of Service November 23, 2021 Assessment & Plan (1) CAD (coronary artery disease): Plan: Acute on chronic occlusion of mid nondominant RCA Intermediate mid to distal LAD disease 2. Preserved LV function 3. Type 2 diabetes 4. Dyslipidemia Has remained chest pain-free. Troponin peaked. Electrically stable on telemetry. No access site complications. From a cardiac standpoint okay with discharge today Home on clopidogrel 75 mg daily continue metoprolol. Add ELBA/ARB Continue high intensity statin Consider addition of GLP-1/SGLT2 as an outpatient Follow-up with me in 2 to 3 weeks. Cardiac rehab as an outpatient Admission and Anticipated Discharge Date Admission Date: November 21, 2021 Subjective Up walking around his room this morning. Denies any chest pain overnight. No shortness of breath. Telemetry reviewedno events. Review of Systems Review of Systems: All systems reviewed & are unremarkable except as noted in HPI & below Physical Exam Physical Exam: General: Comfortable HEENT: Sclerae anicteric Lungs: Clear to auscultation bilaterally, no crackles or wheezes Cardiac: Regular rate and rhythm, no murmurs. Vascular: Right radial artery access site with no ecchymosis, hematoma. Distal pulse and sensation intact. Abdomen: Soft, nontender Extremities: Well perfused, no peripheral edema Neuro: Nonfocal Psych: Alert orient x3, normal affect and mood Results & Data ([facility]) Vital Signs (Past 12 Hours) Vital Signs Temp Pulse Pulse Resp BP Pulse Ox 11/23/21 07:40 98.4 F 67 20 137/73 97 11/23/21 02:58 97.9 F 62 18 127/75 97 11/23/21 00:00 73 11/22/21 23:13 98.1 F 63 18 123/70 97 11/22/21 22:25 153/79 H PG Care Time/CCT Total # of Minutes Spent Total Time Spent with Patient: Total time spent is greater than 50% in coordination of care (as documented) at patient's floor/unit and/or counseling patient: Coding Level of Care Code 60809 Subseq Hosp Care Lvl 3 Diagnoses CAD (coronary artery disease) I25.10
--- NOTE | 2021-11-23 10:48 | Discharge Summary ---
Date of Service November 23, 2021 Admission HPI Per Admitting Provider 81yo male with T2DM presents as a transfer from [facility] for NSTEMI. Yesterday, patient was doing work in his yard when he felt a sudden pain in his right shoulder, about 3/10 in severity, which radiated into his right chest. Patient also experienced some fatigue at the time, and his commented that he looked pale. Patient rested and the pain went away after about an hour. The pain recurred twice more later in the day, both times with the same quality, severity, and duration; however, the second two episodes occurred at rest. Patient monitored his pulse ox and BSG throughout the day and reports these were normal all day. However, out of concern, patient's called EMS, who recommended hospital workup after noting patient was hypertensive to 170/80. At OSH, patient was diagnosed with NSTEMI and then transferred to [facility] on 11/21. Patient notes his symptoms have not returned since the third episode resolved on 11/20. Patient denies fever, chills, SOB, abdominal pain, nausea, vomiting, gerry rrhea, dysuria, or other symptoms, both now and over the past few days. At OSH: vitals stable, initial troponin 216, repeat one hour later was 247 EKG: NSR Echo (11/21/21 at OSH): LVEF 55-59%, no LV wall motion abnormalities, mild MR, mild TR present At OSH, patient received: Lopressor 50mg bid (final dose 11/21 at 0420) Brillinta 90mg bid (final dose 11/21 at 0818) No aspirin (patient refused, says statins caused him to develop DM2) Admission Exam Per Admitting Provider Constitutional: well-appearing, no acute distress CV: regular rhythm, no murmur appreciated, extremities well-perfused, no LE edema Resp: CTABL, no wheezes/rales/rhonchi appreciated, no increased work of breathing GI: soft, nontender MSK: no gross deformities appreciated Skin: warm, dry, no rash appreciated Neuro: alert, oriented, no focal neurologic deficit appreciated Principal Diagnosis NSTEMI Discharge Exam General: Grossly A&O. NAD. Cooperative. HEENT: Atraumatic, normocephalic. EOMI Pulm: CTAB. -wheezes, -rales, -rhonchi. No respiratory distress. Cardiac: RRR, -mrg. Discharge Data Allergies Allergy/AdvReac Type Severity Reaction Status Date / Time NSAIDS (Non-Steroidal Allergy Unknown Verified 04/21/21 11:00 Anti-Inflamma latex Allergy Verified 04/21/21 11:00 Consultations 11/21/21 21:40 Consult Cardiology Routine 11/22/21 09:58 Consult Cardiac Rehabilitation Routine Procedures Performed Operation Date: 11/22/21 08:00 Actual Procedures s Cineradiography w/Routine Exam - Phil Díaz MD p Cath, Left with Cors and Vent - Phil Díaz MD p POBA SGL Vessel - Phil Díaz MD Ordered Studies Cardiac Enzymes 11/22/21 11/22/21 11/23/21 Range/Units 14:02 21:00 06:36 Troponin I High Sens 6973.1 H* D 7728.2 H* 6739.5 H* (0-20) pg/ml Coagulation 11/22/21 11/22/21 11/22/21 Range/Units 10:38 15:28 21:00 APTT 120.1 H* 28.1 31.6 H (21.0-31.0) Seconds 11/23/21 Range/Units 06:36 APTT 54.3 H* (21.0-31.0) Seconds CBC 11/23/21 Range/Units 06:36 WBC 6.53 (4.8-10.8) K/uL RBC 4.58 L (4.7-6.1) M/uL Hgb 13.8 L (14.0-18.0) g/dL Hct 39.9 L (42-52) % Plt Count 147 (130-400) K/uL Comprehensive Metabolic Panel 11/23/21 Range/Units 06:36 Sodium 140 (136-145) mmol/L Potassium 4.2 (3.5-5.1) mmol/L Chloride 104 (98-107) mmol/L Carbon Dioxide 31 (21-32) mmol/L BUN 19 (6-23) mg/dl Creatinine 1.13 (0.6-1.4) mg/dl Glucose 121 H (70-99(Fasting)) mg/dl Calcium 8.8 (8.5-10.1) mg/dl Intake and Output 11/22/21 11/23/21 11/23/21 22:59 06:59 14:59 Intake Total 1022.7 / 1216.05 193.35 / 1216.05 Balance 1022.7 / 1216.05 193.35 / 1216.05 Intake: IV 822.7 / 866.05 43.35 / 866.05 Heparin Sodium/Dextrose 25,000 322.7 / 366.05 43.35 / 366.05 units In 500 ml @ 1,200 UNITS/ HR 24 mls/hr IV .[id number] [facility] Rx #:[id number] Sodium Chloride 0.9% 1000ML 500 500 / 500 ml @ 100 mls/hr IV .Q5H [facility]ON[facility] Rx #:[id number] Oral 200 / 350 150 / 350 Other: Weight 93.4 kg Cardiac Cath Procedure Full Procedure Date November 22, 2021 Findings: LM -normal caliber, no significant disease LAD -medium caliber, 60% mid segment stenosis after takeoff of first septal, diffuse 40% latemid/distal disease. Distal vessel small and tapers to apex. Small D1 without disease. Circumflex -dominant, large caliber, no significant disease. Gives off 3 medium caliber OM's without significant disease. RCA -nondominant, 100% mid occlusion. Faint xiif-go-khnyq collaterals to RV branch. LVEDP -11 -- Attempted PCI of mid RCA occlusion- Antithrombotic therapy: Heparin Procedure: RCA cannulated with JR4 Pre-procedure flow RIYA 0 Boring Machine Set Up Operator Jig 50 wire passed across lesion into distal vessel Unable to pass 2.0 balloon across proximal vessel despite aid of a GuideLiner RCA rewired with BMW wire Able to pass 1.5 balloon but decision made to abort procedure as patient completely chest pain-free with normal inferior wall motion abnormality and symptom duration >24 hours. Arterial Closure: TR band Summary: 1. 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 Moderate nonculprit coronary artery disease -60% mid LAD, 40% diffuse disease in small distal LAD 3. Normal intracardiac filling pressure Recommendations: As >24 hours out from [place] and currently asymptomatic recommend medical management of nondominant RCA occlusion Continue heparin for 48 hours Trend troponin until peak and repeat echocardiogram Transition ticagrelor to clopidogrel and continue for 1 year Continue statin, and ASCVD risk factor modification Consult cardiac Rehab Hospital Course (1) NSTEMI (non-ST elevated myocardial infarction): 81yo male with T2DM and HLD presents as a transfer from [facility] for NSTEMI and is now s/p cardiac cath; medical management. NSTEMI Patient with CP at OSH a/w rising hsTroponin levels, has multiple risk factors. hsTrop 18748 at admission VSS, EKG NSR, echo at OSH (11/21/2021) EF 55-59% without overt wall motion abnormalities Transferred to [facility] further evaluation Of note, patient refused aspirin d/t concern for possible allergy PCI (From cardiology report) 1. 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 Moderate nonculprit coronary artery disease -60% mid LAD, 40% diffuse disease in small distal LAD 3. Normal intracardiac filling pressure Continue beta violet (metoprolol tartrate 50mg PO BID). Transitioned from Brilinta to Plavix. S/p heparin drip. Adding lisinopril 2.5mg daily. Starting Crestor 20mg daily. Consulted cardiac rehab. Duration of Plavix: deferring to cardiology. Consider 1 year (as recommended) vs. indefinite because of aspirin intolerance. Recommend strong counseling of lifestyle modifications specifically diet. Encouraged patient to incorporate elements of Mediterranean diet. Consider re ferral to induction machine setter to optimize diet from a cardiac standpoint. DM2 HbA1c 5.9% (04/2020), repeat value 6.4 this admission Check BSG ACHS. No SSI indicated at this time HLD Patient with history of HLD which he treats with vitamins/herbs Is resistant to Lipitor therapy, states it gave him DM2. He is agreeable to Crestor (rosuvastatin). LDL 110, not at goal (<70) Code status this admission: full (2) Type 2 diabetes mellitus: (3) BPH (benign prostatic hyperplasia): (4) Hyperlipidemia: Total Time Total Time Spent Total Time Spent (In Minutes): <30 Discharge Plan Discharge Items Patient Disposition: Home - Self-Care Reason For Visit: NSTEMI Discharge Diagnosis: NSTEMI Activity: Per Instructions section Non-emergency contact: Primary Care Provider Call non-emergency contact if: you have any medication questions, your symptoms worsen and you have a fever Follow-up/Referrals: Yasir Shine MD [Primary Care Provider] - (hospital discharge follow up within 1 week of leaving the hospital.) Phil Díaz MD [Physician] - 12/13/21 10:00 am (Please follow up with Dr. Díaz on Sunday12/13/21 at 10:00 am. Please arrive to the office at 9:45 am for your appointment. If you are unable to keep this appointment, please call the office to reschedule at [phone].) Diet: Carb Consistent or DM2 and Heart Healthy Addtl Attending Provider Instructions: Hi Mr. Teague, You were admitted to the hospital for a heart attack, specifically an NSTEMI (no big ST elevations on EKG, but still w/ blockage of coronary arteries causing chest pain and heart tissue damage. The high sensitive troponin marker being elevated to 10,000 reflects this. The cardiac catheterization showed: 60% narrowing of one of the main vessels (LAD). There was 100% blockage of one of the smaller vessels (RCA). A stent was not placed and your condition will be treated with medications only. The heart ultrasound showed: Normal heart function. There was slight thickening of the heart wall and the aortic valve had slight hardening. New medications: Plavix 75mg daily; use indefinitely (in place of aspirin). metoprolol tartrate 50mg twice a day. lisinopril 2.5mg once a day. Crestor 20mg once a day (currently, timed for nighttime 11pm, but you can change the timing). Niacin has been discontinued. Handout on Mediterranean diet has been provided. Incorporate elements of this into your diet if possible. Continue routine cardio exercise. Please follow up with your primary care provider within 1 week of leaving the hospital. Regular follow up is recommended. Consult to cardiac rehab has also been ordered. f/u bo/ Arjun in 3 wks. A detailed discharge summary will be sent to these providers. If you develop any new or worsening symptoms including fever, chills, sweats, chest pain, chest pressure, difficulty breathing, uncontrolled nausea/vomiting, rash, wheezing, passing out or nearly passing out, bleeding, black/bloody bowel movements, or other new or concerning symptoms please call your primary care physician, or call 911 for re-evaluation in the emergency department if you are very concerned. If you develop any dizziness or lightheadedness, mention to your PCP who may decide to adjust your blood pressure medications. Recheck kidney function labs in 2-3 weeks. Pending Studies at Discharge: No Stand-Alone Forms: My [facility] [employer], Smoking Cessation Medications and DC Order Prescriptions: New clopidogrel 75 mg Tablet 75 mg PO DAILY@2300 30 Days Qty: 30 RF: 1 metoprolol tartrate 50 mg Tablet 50 mg PO BID 30 Days Qty: 60 RF: 1 nitroglycerin [Nitrostat] 0.4 mg Tablet, Sublingual 0.4 mg sublingual UD PRN (Reason: chest pain) 30 Days Qty: 10 RF: 1 rosuvastatin [Crestor] 20 mg Tablet 20 mg PO QAM 30 Days Qty: 30 RF: 1 lisinopril 2.5 mg tablet 2.5 mg PO DAILY 30 Days Qty: 30 RF: 1 Continued Toujeo SoloStar U-300 Insulin 300 unit/mL (1.5 mL) insulin pen 15 unit SQ PM 90 Days Qty: 4.5 RF: 3 (DME) FreeStyle Kim 2 Sensor Kit See Rx Instructions .Route Qty: 2 RF: 11 (DME) pen needle, diabetic [BD Ultra-Fine Cherri Pen Needle] 32 gauge x 5/32" needle See Rx Instructions .ROUTE .MEDSUPPLY Qty: 100 RF: 3 krill oil 500 mg capsule PO RF: 0 potassium 99 mg tablet PO RF: 0 NAD plus PO RF: 0 magnesium PO RF: 0 berberine-herbal comb no.18 Capsule PO RF: 0 alpha lipoic acid 600 mg capsule 1,200 mg PO DAILY Qty: 60 RF: 0 coenzyme Q10 [CoQ-10] 100 mg capsule 100 mg PO DAILY Qty: 30 RF: 0 Ocuvite Adult 50 Plus 250-5-1 mg capsule 1 cap PO DAILY Qty: 30 RF: 2 biotin 1 mg capsule 1 mg PO DAILY Qty: 30 RF: 2 cholecalciferol (vitamin D3) 1,000 unit tablet,chewable 1,000 units PO DAILY Qty: 30 RF: 0 Discontinued niacin 500 mg tablet 500 mg PO DAILY Qty: 30 RF: 0 Discharge Orders: Discharge Order (Routine); Ordered 11/23/21 Ordered By: Joel Khalil/Other Patient Handouts: Mediterranean Diet, Diabetes and Heart Disease, Managing Type 2 Diabetes, 5 Steps for Eating Healthier Admission Data Admit Date/Time: 11/21/21 21:11 Attending Provider: Antwan Plummer Admit Provider: Bola Jaimes Primary Care Provider: Yasir Shine Other Providers: Phil Díaz ; Derek Ramsey Other Interventions: Discharge Summary Assessment (RN) Last Done: 11/23/21 12:20 Supervising Physician Co-Signing Physician Notes I personally examined the patient and verified all anderson points of history and exam, discussed case, and agree with decision making with Dr Richmond Feels fine and really wants to go home. Vitals noted, in general he is awake and alert pleasant no distress. HEENT normocephalic atraumatic mucous membranes moist. Breathing unlabored no accessory muscle use good effort. Skin shows no rashes no pallor or icterus. Neuro without focal deficits. NSTEMImed management, secondary risk reductionwe outlined diet and exercise, over all outlined meds in detail. Appreciate cardiology input. Otherwise as above, safe/stable for home Resident Activity Tracking Resident Involvement: Resident Care Provided Care Provided: Adult Hospital Medicine
--- NOTE | 2021-11-23 12:09 | Electrocardiogram Report ---
Test Reason : Blood Pressure : / mmHG Vent. 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
[2021-11-23] MEDS ORDERED: CLOPIDOGREL BISULFATE 75 MG TAB PO SCH (23:00)
--- NOTE | 2021-11-24 19:33 | Billing Data ---
Date of Service November 23, 2021 Coding Level of Care Code D/C DAY MANAGEMENT <30 MINS
== END 2021-11-23 13:13 | disposition home or self-care (01) | DRG 282 ==
LOC: 2S 19:32 → SUATTDRO 21:11
DX: E78.5 Hyperlipidemia, unspecified; Z79.4 Long term (current) use of insulin; Z88.6 Allergy status to analgesic agent; Z85.828 Personal history of other malignant neoplasm of skin; Z86.010 Personal history of colon polyps; Z91.040 Latex allergy status; E11.9 Type 2 diabetes mellitus without complications; N40.0 Benign prostatic hyperplasia without lower urinary tract symptoms; I65.21 Occlusion and stenosis of right carotid artery; I25.10 Atherosclerotic heart disease of native coronary artery without angina pectoris; I21.4 Non-ST elevation (NSTEMI) myocardial infarction; J32.9 Chronic sinusitis, unspecified

== ENCOUNTER 2025-05-05 11:47 | Observation (INO) ==
--- NOTE | 2025-04-23 11:08 | Anesthesiology Consultation ---
Date of Service April 23, 2025 Assessment & Plan (1) Encounter for pre-operative examination: - Check BSG DOS - Infectious disease screening: Per assessment on 04/23/25- No known recent infectious disease contacts or current infectious disease symptoms. - [place] Cardio visit 10/31/24: "STEMI 04/03/23 post PCI of 3 [facility].. NSTEMI 11/2020 acute on chronic occlusion of mid nondominant RCA with [id number] collaterals.. Residual 60% mid LAD, diffuse small distal LAD disease.. Preserved LV function.. Type 2 diabeteslast A1c 6.5 10/2024, insulin.. Mild aortic stenosislast echo 04/26.. Paroxysmal SVT, brief NSVTasymptomatic on event monitor 02/2022.. Syncopal eventoff metoprolol.. Stable from a cardiac standpoint. He remains active without any recurrent anginal symptoms. On exam today no signs of heart failure or new PVD. sounds to have slightly progressed but non-severe. Blood pressure excellent. LDL slightly above goal of <55. Continued ASCVD secondary prevention.. Continue clopidogrel alone (Aspirin Allergy).. Continue current rosuvastatin.. Will add Zetia 10 mg daily. Repeat lipids in 2 months.. Continue current losartan.. Encouraged more regular exercise.. Follow-up in 9 months with repeat echo to evaluate " - Hx mild aortic stenosis noted on Echo per [facility] cardio/records; recommendation per cardio for repeat echo to be done ~07/2025. Case/aortic stenosis hx/most recent cardiac visit reviewed with Dr. Dietrich. He feels patient okay to proceed as scheduled without further cardiac testing and/or evaluation prior to scheduled DOS. Chart Review Chart Review: Acceptable Risk for Surgery (pending evaluation DOS) and Patient NOT seen in Pre Admission Testing History Surgery Operation Date: 05/05/25 13:55 Proposed Procedures p TURP (Transurethral Resection of Prostate), - Usman Ruelas MD s Litholapaxy - Usman Ruelas MD Height/Weight Height: 5 ft 9 in Weight: 93.894 kg Allergies Allergy/AdvReac Type Severity Reaction Status Date / Time aspirin Allergy Severe "had Verified 04/23/25 10:07 diarrhea for 3 hours and nose rain for 3 hours" NSAIDS (Non-Steroidal Allergy Severe "had Verified 04/23/25 10:07 Anti-Inflamma diarrhea for 3 hours with aspirin" latex Allergy Mild Rash Verified 04/23/25 10:07 metformin AdvReac Intermediate "caused Verified 04/23/25 10:07 colitis" ramipril AdvReac Intermediate "hacking Verified 04/23/25 10:07 cough" Medications Home Medications Medication Instructions Recorded Confirmed Last Taken alpha lipoic acid 600 mg capsule 1,200 mg (2 x 600 mg) PO DAILY #60 05/05/19 04/23/25 Unknown caps cholecalciferol (vitamin D3) 25 1,000 units PO DAILY #30 tabs 05/05/19 04/23/25 Unknown mcg (1,000 unit) chewable tablet coenzyme Q10 100 mg capsule 100 mg PO DAILY #30 caps 05/05/19 04/23/25 Unknown (CoQ-10) NAD plus 1 tab PO DAILY 04/19/20 04/23/25 Unknown potassium 99 mg tablet 99 mg PO DAILY 04/19/20 04/23/25 Unknown berberine-herbal comb no.18 capsule 1 cap PO DAILY 04/21/21 04/23/25 Unknown BD Ultra-Fine Cherri Pen Needle 32 #100 ea 06/07/21 04/13/25 Unknown gauge x 5/32" (pen needle, diabetic) nitroglycerin 0.4 mg sublingual 0.4 mg sublingual UD PRN chest 11/23/21 04/23/25 Unknown tablet (Nitrostat) pain 30 days #10 tabs cetirizine 10 mg capsule (Zyrtec) 10 mg PO HS 04/09/23 04/23/25 Unknown fluticasone propionate 50 1 spray intranasal HS 04/09/23 04/23/25 Unknown mcg/actuation nasal spray,suspension mv-mn-folic 200 mcg-vit K 15 1 cap PO DAILY 04/09/23 04/23/25 Unknown mcg-lutein 5 mg-zeaxanthin 1 mg capsule (PreserVision AREDS 2 Plus Multivit) doxycycline hyclate 100 mg capsule 100 mg PO BID #20 caps 05/06/24 04/23/25 Unknown FreeStyle Kim 3 Plus Sensor #6 ea 04/23/25 Unknown (blood-glucose sensor) ascorbic acid (vitamin C) 1,000 mg 1,000 mg PO DAILY 04/23/25 04/23/25 Unknown tablet (Vitamin C) clopidogrel 75 mg tablet 75 mg PO HS 04/23/25 04/23/25 Unknown coenzyme Q10 100 mg capsule 100 mg PO DAILY 04/23/25 04/23/25 Unknown cyanocobalamin (vitamin B-12) 1,000 mcg PO DAILY 04/23/25 04/23/25 Unknown 1,000 mcg tablet (Vitamin B-12) ezetimibe 10 mg tablet (Zetia) 10 mg PO HS 04/23/25 04/23/25 Unknown insulin glargine U-300 conc 300 30 unit subcut QPM 04/23/25 04/23/25 Unknown unit/mL (1.5 mL) subcutaneous pen (Toujeo SoloStar U-300 Insulin) losartan 25 mg tablet 12.5 mg PO HS 04/23/25 04/23/25 Unknown magnesium 1 tab PO DAILY 04/23/25 04/23/25 Unknown niacin 500 mg tablet 500 mg PO DAILY 04/23/25 04/23/25 Unknown rosuvastatin 40 mg tablet 40 mg PO HS 04/23/25 04/23/25 Unknown tamsulosin 0.4 mg capsule 0.4 mg PO QPM 04/23/25 04/23/25 Unknown turmeric 400 mg capsule 400 mg PO DAILY 04/23/25 04/23/25 Unknown vitamins-lipotropics tablet 1 tab PO DAILY 04/23/25 04/23/25 Unknown Past Medical History Medical History Basal cell carcinoma Off ear 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) CAD (coronary artery disease) 03/2023 ([facility])- stent x1 Chronic sinusitis Diabetes mellitus, type 2 Hearing deficit "Happens when fluid in ears" Hematuria History of Lyme disease History of myocardial infarction 11/2021- no stents 03/2023 ([facility])- stent x1 Hyperlipidemia Loss of sensation Mild aortic stenosis Follows with [facility] cardio Nasal polyp Neuropathy of both feet Rectal polyp Past Family History Family History Mother Acute alcohol abuse Father Carotid artery stenosis Stroke Grandmother (Maternal) Diabetes Brother Hyperlipidemia Other No family history of adverse response to anesthesia Past Surgical History Surgical History History of anesthesia reaction "Extremely slow to wake" "I was in a fog for 4 days" after colonoscopy History of cardiac cath 2020- no stents 2022- stent x1 History of colonoscopy History of heart artery stent stent x1 (2022) History of Mohs micrographic surgery for skin cancer Basal cell removal off ear History of prostate biopsy In office- benign History of removal of cyst Off finger History of tonsillectomy History of wisdom tooth extraction Status post nasal endoscopy with nasal polypectomy Social History Smoking Status: Never smoker Do You Dip or Chew Tobacco: No Hx Alcohol Use: No Alcohol type: beer alcohol intake frequency: holidays/special occasions only Hx Substance Use: No substance use type: does not use Lab Results Anesthesia Preop Results Results Anesthesia Widget: WBC 6.59 K/ul (4.8-10.8) 04/15/25 Hgb 13.5 g/dL (14.0-18.0) L 04/15/25 Hct 39.9 % (42.0-52.0) L 04/15/25 Plt 136 K/uL (130-400) 04/15/25 Na 141 mmol/L (136-145) 04/13/25 K 4.0 mmol/L (3.5-5.1) 04/13/25 Cl 106 mmol/L (98-107) 04/13/25 CO2 28 mmol/L (21-32) 04/13/25 BUN 21 mg/dl (6-23) 04/13/25 Creat 1.05 mg/dl (0.6-1.4) 04/13/25 Glucose Level 142 mg/dl (70-99(Fasting)) H 04/13/25 Testing Laboratory Results Urine culture 04/15/25: No growth Electrocardiogram Date: 04/15/25 SR with occasional PVCs. 68bpm. Low voltage QRS. possible inferior infarct (cited on or before 08/27/2002 per conveyor feeder offbearer comparison). Cannot r/o anterior infarct (cited on or before 08/27/2002 per conveyor feeder offbearer comparison). Chest X-Ray Date: 04/15/25 Findings: + NAD Echocardiogram Date: 04/04/23 LVEF 55-60%. No regional wall motion abnormality. Mild RVE. Grade 1 diastolic dysfunction. No LVH. Physiologic MR. Mildly elevated RVSP 41.3mmhg. Aortic valve is not well-visualized per echo report; per subsequent [facility] cardiology visits, "mild aortic stenosis" on echo; recommendation for repeat Echo 07/2025. Cardiac Catheterization Date: 04/03/25 Three-vessel CAD with left dominant system with occlusion of the third obtuse marginal and a chronic total occlusion of the RCA status post successful stenting of the OM 3.
[2025-05-05] MEDS: LACTATED RINGER'S 1,000 ML IV SCH (12:34)
[2025-05-05] MEDS ORDERED: ATROPINE SULFATE 0.1 MG/ML 10ML SYR IV PRN (14:52)
[2025-05-05] MEDS ORDERED: ONDANSETRON INJ 2 MG/ML 2 ML VIAL IV PRN (14:52)
[2025-05-05] MEDS ORDERED: ONDANSETRON INJ 2 MG/ML 2 ML VIAL ONE (15:13)
[2025-05-05] MEDS ORDERED: PHENYLEPHRINE HCL 10 MG/ML VIAL ONE (15:13)
[2025-05-05] MEDS ORDERED: LIDOCAINE 2% 2 ML VIAL/AMP(20MG/ML) INFIL ONE (15:13)
[2025-05-05] MEDS ORDERED: PROPOFOL IV EMULSION 10 MG/ML 20 ML VIAL IV ONE (15:13)
[2025-05-05] MEDS ORDERED: DEXAMETHASONE SOD INJ 4 MG/ML VIAL ONE (15:13)
--- NOTE | 2025-05-05 15:27 | History & Physical Bridge Note ---
Date of Service May 05, 2025 History & Physical Bridge Note I have examined the patient, reviewed the History & Physical and in the interval since the performance of the History & Physical I have noted the following changes of clinical significance: no changes noted
[2025-05-05] MEDS: CIPROFLOXACIN / D5W 400 MG/200 ML BAG IV SCH (15:48)
[2025-05-05] MEDS ORDERED: ePHEDrine sulfate 50 MG/5 ML SYR ONE (16:03)
--- NOTE | 2025-05-05 17:12 | Operative Report ---
PG Post Operative Report Pre & Post Diagnosis Operation Date: 05/05/25 14:10 Pre-Op Diagnosis: Benign Prostatic Hyperplasia with Lower Urinary Tract Symptoms Post-Op Diagnosis: Benign Prostatic Hyperplasia with Lower Urinary Tract Symptoms I identified the patient and participated in the time-out.: Yes Procedure Operation Date: 05/05/25 14:10 Actual Procedures p Transurethral Resection of Prostate,(Not Applicable) - Usman Ruelas MD s Litholapaxy(Not Applicable) - Usman Ruelas MD Surgeon Usman Ruelas MD [employer] none Estimated Blood Loss 10 Findings Consistent with Post-Op Diagnosis Specimens Prostate chipsthere are likely small stones mixed in with this, the stones can be sent for chemical analysis, the prostate chips for pathology Description of Procedure The patient was identified in the preoperative holding area, appropriate informed consents were reviewed and completed and the patient was transferred to the operative suite. Upon arrival, appropriate antibiotics and anesthesia were administered and the patient was placed in dorsal lithotomy position and prepped and draped in sterile fashion. Begin the case I passed a 27 Lithuanian resectoscope with 30 degree lens and visual obturator. Inspection revealed a healthy appearing urethra and a very large prostate with a very high bladder neck and an intravesical median lobe as well as generalized intravesical intrusion of the prostate. He has an extremely heavily trabeculated bladder that has multiple very small stones seated behind the prostate itself. Ureteral orifices were identified and separate from the intravesical component of the prostate. After performing this inspection I chose a loop electrode and began resection by incising the bladder neck at 5 and 7:00 and then resecting the intravesical median lobe between the 2 incisions. Greatly improved the appearance of the bladder neck, however, there was still a great deal of redundant prostate tissue and I then moved onto resecting the left lateral lobe before moving onto the right lateral lobe. Apical tissue was ultimately treated as was anterior tissue. I emptied all tissue from the bladder on numerous occasions and continued resecting until I felt that there would be an adequate removal of obstructing adenoma. Hemostasis was excellent. All chips were clear. Stones were irrigated out of the bladder with the specimen and unfortunately, given the small size of the stones, they became mixed in with the prostate chips and were not easy to separate. I passed the specimen off the table and I inserted a new 22 Lithuanian 30 cc Kapoor catheter. He was reversed of anesthesia and taken to the recovery room in stable condition. He will be kept overnight and hope for voiding trial tomorrow morning. He will continue to hold his Plavix for 3 additional days. I attest to the content of the Intraoperative Record and any orders documented therein. Any exceptions are noted below.
--- NOTE | 2025-05-05 18:21 | Anesthesiology Progress Note ---
Date of Service May 05, 2025 Anesthesia Post Procedure Vital Signs Vital Signs: Temp Pulse Pulse Resp BP Pulse Ox O2 Del Method 05/05/25 18:04 60 15 139/63 100 Nasal Cannula 05/05/25 17:50 36.2 C L 60 15 144/68 H 100 Nasal Cannula 05/05/25 17:40 60 15 138/70 100 Nasal Cannula 05/05/25 17:30 69 13 135/65 99 Oxymask 05/05/25 17:20 63 15 141/71 H 100 Oxymask 05/05/25 17:12 36.0 C L 76 15 126/59 L 96 Oxymask 05/05/25 12:15 36.4 C L 61 20 166/60 H 93 Room Air O2 Flow Rate 05/05/25 18:04 2 05/05/25 17:50 2 05/05/25 17:40 2 05/05/25 17:30 5 05/05/25 17:20 5 05/05/25 17:12 5 05/05/25 12:15 Transfer of Care Handoff Completed per policy Notes Mental Status: alert / awake / arousable Patient Amnestic to Procedure: Yes Nausea / Vomiting: adequately controlled Pain: adequately controlled Airway Patency, RR, SpO2: stable & adequate BP & HR: stable & adequate Hydration State: stable & adequate Anesthetic Complications: no major complications apparent
[2025-05-05] MEDS ORDERED: PHARMACY GLYCEMIC MGMT CONSULT PRN (18:54)
[2025-05-05] MEDS ORDERED: NITROGLYCERIN SL 0.4 MG/TAB TAB SL PRN (18:54)
[2025-05-05] MEDS ORDERED: ACETAMINOPHEN 500 MG TAB PO PRN (18:54)
--- NOTE | 2025-05-05 19:35 | Pharmacy Report ---
Pharmacy Glycemic Short Note 2 - Date of Service May 05, 2025 - Glycemic Short BSG Results (Last 24 hours): 05/05/25 05/05/25 12:17 17:13 POC Glucose 129 H 120 H OUTPATIENT ANTIDIABETIC REGIMEN: * Toujeo 26 units qpm * A1c: 6.3% 01-20-25 ASSESSMENT: * Patient admitted for observation post TURP. Post op BSGs are well controlled. * Patient confirmed above regimen and that he did not take his Toujeo today. * No diet ordered at present, but patient noted he had a turkey sandwich this evening. * Will decrease dose to account for Toujeo to lantus conversion and further decrease to account for addition of NovoLog while inpatient. PLAN FOR INPATIENT GLYCEMIC CONTROL: * Hold outpatient oral diabetes medications * Basal insulin * Lantus 15 units SQ qpm * Bolus insulin * NovoLog per scale ACHS or Q6hrs while NPO * Goal Range: Low 120 mg/dL - High 150 mg/dL * Correction Factor: 35 mg/dL/unit * Nutritional / Prandial insulin per carb ratio of 1 unit per 12 grams CHO consumed
[2025-05-05] MEDS: SODIUM CHLORIDE 0.9% 500 ML IV SCH (20:15)
[2025-05-05] MEDS: CETIRIZINE HCL 10 MG TABLET PO SCH (20:19)
[2025-05-05] MEDS: ROSUVASTATIN CALCIUM 20 MG TAB PO SCH (20:19)
[2025-05-05] MEDS: EZETIMIBE 10 MG TAB PO SCH (20:19)
[2025-05-05] MEDS: LOSARTAN POTASSIUM 25 MG TAB PO SCH (20:19)
[2025-05-05] MEDS: INSULIN ASPART PER UNIT CHARGE SC SCH (20:50)
[2025-05-05] MEDS: LANTUS PER UNIT CHARGE SC SCH (20:51)
[2025-05-06] MEDS: CIPROFLOXACIN / D5W 400 MG/200 ML BAG IV SCH (02:49)
[2025-05-06 07:32] LABS: Hematocrit (blood only) 37.0 % (42.0-52.0); Hemoglobin 12.8 g/dL (14.0-18.0); Mean Corpuscular Hemoglobin 29.7 pg (25.0-34.0); Mean Corpuscular Volume 85.8 fL (80.0-100.0); Platelet Count 130 K/uL (130-400); RDW Standard Deviation 40.1 fL (36.4-46.3); Red Blood Count 4.31 M/uL (4.70-6.10); White Blood Count 10.72 K/ul (4.8-10.8)
[2025-05-06 08:06] LABS: Anion Gap 9.0 (3-11); Blood Urea Nitrogen 17.0 mg/dl (6-23); Calcium 8.0 mg/dl (8.6-10.3); Carbon Dioxide 24.0 mmol/L (21-32); Chloride 106.0 mmol/L (98-107); Creatinine Clr Calc Pharmacy 69.8 ml/min; Glucose 219.0 mg/dl (70-99(Fasting)); Potassium 4.1 mmol/L (3.5-5.1); Sodium 139.0 mmol/L (136-145)
--- NOTE | 2025-05-06 08:57 | Urology Progress Note ---
Date of Service May 06, 2025 Assessment & Plan (1) Urinary retention: Plan Postop day #1 status post TURP and litholapaxy Plan for voiding trial this morning and discharge home later today Resume Plavix on Sunday Admission and Anticipated Discharge Date Admission Date: May 05, 2025 Subjective Subjectively doing well He has some blood in his urine but no discomfort or other irritation Had a good night of sleep Physical Exam Physical Exam: Cranberry colored urine Results & Data Vital Signs (Past 12 Hours) Vital Signs Temp Pulse Resp BP Pulse Ox O2 Del Method 05/06/25 07:57 36.6 C 63 19 129/69 95 Room Air 05/06/25 07:53 36.8 C 74 14 130/68 94 Room Air 05/06/25 04:04 36.7 C 71 16 124/69 94 Room Air 05/06/25 00:04 36.6 C 83 16 137/70 93 Room Air 05/05/25 21:30 36.4 C L 67 16 129/59 L 93 Room Air PG Care Time/CCT Total # of Minutes Spent Total Time Spent with Patient: Total time spent is greater than 50% in coordination of care (as documented) at patient's floor/unit and/or counseling patient: Coding Level of Care Code None Diagnoses Urinary retention R33.9
[2025-05-06] MEDS: INFLUENZA VACC TS2025-26(65y+)/PF (IIV3) 0.5mL Syr IM ONE (09:13)
--- NOTE | 2025-05-06 11:35 | Discharge Summary ---
Date of Service May 06, 2025 Admission HPI Per Admitting Provider Patient with BPH with obstruction here for TURP and litholapaxy Principal Diagnosis BPH with obstruction Discharge Exam Constitutional well developed and well nourished; no acute distress Respiratory normal respiratory effort; no respiratory distress and no labored breathing Gastrointestinal (Abdomen) Inspection/Auscultation: abdomen normal to inspection Musculoskeletal Head/Neck/Chest: normocephalic Neurologic moves all extremities and awake Psychiatric Orientation: alert and oriented x 3 Discharge Data Allergies Allergy/AdvReac Type Severity Reaction Status Date / Time aspirin Allergy Severe "had Verified 05/05/25 12:06 diarrhea for 3 hours and nose rain for 3 hours" NSAIDS (Non-Steroidal Allergy Severe "had Verified 05/05/25 12:06 Anti-Inflamma diarrhea for 3 hours with aspirin" latex Allergy Mild Rash Verified 05/05/25 12:06 metformin AdvReac Intermediate "caused Verified 05/05/25 12:06 colitis" ramipril AdvReac Intermediate "hacking Verified 05/05/25 12:06 cough" Procedures Performed Operation Date: 05/05/25 14:10 Actual Procedures p Transurethral Resection of Prostate,(Not Applicable) - Usman Ruelas MD s Litholapaxy(Not Applicable) - Usman Ruelas MD Hospital Course (1) Urinary retention: Plan Postop day #1 status post TURP and litholapaxy Plan for voiding trial this morning and discharge home later today Resume Plavix on Sunday Patient voided after catheter removal and is ready for discharge All questions answered Total Time Total Time Spent Total Time Spent (In Minutes): 25 Discharge Plan Discharge Items Patient Disposition: Home - Self-Care Reason For Visit: Benign Prostatic Hyperplasia with Lower Urinary Tr Discharge Diagnosis: Benign prostatic hyperplasia with lower urinary tract symptoms Activity: Per Instructions section Lifting: Gradually increase as tolerated and No more than 25 pounds Bathing Comment: Okay to shower after discharge Sexual Activity: Wait until after follow-up appointment Exercise/Sports: Wait until after follow-up appointment Non-emergency contact: Surgeon and Urologist Call non-emergency contact if: your pain is not controlled, you have a fever and your temperature is above 101 Follow-up/Referrals: ProYasir MD [Primary Care Provider] - Diet: Carb Consistent or DM2 Addtl Attending Provider Instructions: Please take all medications as prescribed and keep all follow-ups as scheduled. Please call our office at [phone] with any questions, concerns or need to reschedule appointments for any reason. We are happy to assist you. Resume Plavix on Sunday, 05/08 Tips for your recovery at home: Dont be alarmed by brownish or reddish blood or clots in your urine. This is a result of the procedure. This may occur off and on for weeks to months after the procedure but should continue to improve. Drink plenty of fluids during the day (enough to keep your urine very light colored). This will help keep a healthy flow of urine. Do not lift >25 lbs in the first 1-2 weeks Avoid constipation. Please use a stool softener (Colace) for the first two weeks after your procedure If you go home with a catheter, please wash tubing where it enters your body twice daily with mild soap (Dove or Dial). Once your catheter is removed, expect some blood in your urine and some burning when you urinate. You should have an appointment to have this removed, if you do not please call our office to arrange. Pending Studies at Discharge: Yes Stand-Alone Forms: [facility] Hard[employer] Resale, Smoking Cessation Medications and DC Order Prescriptions: Continued (DME) pen needle, diabetic [BD Ultra-Fine Cherri Pen Needle] 32 gauge x 5/32" needle See Rx Instructions .ROUTE .MEDSUPPLY Qty: 100 3RF Rx Instructions: Use one daily with Toujeo at bedtime Zyrtec 10 mg capsule 10 mg PO HS fluticasone propionate 50 mcg/actuation spray,suspension 1 spray intranasal HS Rx Instructions: administer into each nostril PreserVision AREDS 2 Plus MV 200 mcg-15 mcg- 5 mg-1 mg capsule 1 cap PO DAILY (DME) FreeStyle Kim 3 Plus Sensor Device See Rx Instructions .ROUTE .MEDSUPPLY Qty: 6 3RF Rx Instructions: change every 15 days potassium 99 mg tablet 99 mg PO DAILY Rx Instructions: 1 X daily NAD plus 1 tab PO DAILY Rx Instructions: 1 X daily berberine-herbal comb no.18 Capsule 1 cap PO DAILY alpha lipoic acid 600 mg capsule 1,200 mg PO DAILY Qty: 60 0RF coenzyme Q10 [CoQ-10] 100 mg capsule 100 mg PO DAILY Qty: 30 0RF cholecalciferol (vitamin D3) 1,000 unit tablet,chewable 1,000 units PO DAILY Qty: 30 0RF doxycycline hyclate 100 mg capsule 100 mg PO BID Qty: 20 0RF Rx Instructions: take with food .. no dairy products with meds as directed nitroglycerin [Nitrostat] 0.4 mg Tablet, Sublingual 0.4 mg sublingual UD PRN (Reason: chest pain) 30 Days Qty: 10 1RF Rx Instructions: Acute chestpain: 0.3 or 0.4 mg at onset; repeat every 5 minutes if angina persists; may administer up to 3 tablets in a 15-minute period. If pain is not relieved or worsens 3 to 5 minutes after 1 sublingual or translingual dose, seek immediate emergency medical attention (eg, call 911) ascorbic acid (vitamin C) [Vitamin C] 1,000 mg Tablet 1,000 mg PO DAILY cyanocobalamin (vitamin B-12) [Vitamin B-12] 1,000 mcg Tablet 1,000 mcg PO DAILY niacin 500 mg Tablet 500 mg PO DAILY vitamins-lipotropics Tablet 1 tab PO DAILY Patient Comments: "a bunch of B vitamins for tinnitus" coenzyme Q10 100 mg Capsule 100 mg PO DAILY magnesium Tablet 1 tab PO DAILY Patient Comments: magnesium tartrate turmeric 400 mg Capsule 400 mg PO DAILY tamsulosin 0.4 mg capsule 0.4 mg PO QPM losartan 25 mg tablet 12.5 mg PO HS ezetimibe [Zetia] 10 mg tablet 10 mg PO HS rosuvastatin 40 mg tablet 40 mg PO HS insulin glargine U-300 conc [Toujeo SoloStar U-300 Insulin] 300 unit/mL (1.5 mL) insulin pen 30 unit SQ QPM Rx Instructions: 26-30 units daily Held clopidogrel 75 mg tablet 75 mg PO HS Hold Instructions: Resume on 05/08/25. Discharge Orders: Discharge Order (Routine); Ordered 05/06/25 Ordered By: Shonda Hernandez Admission Data Admit Date/Time: 05/05/25 17:09 Attending Provider: Usman Ruelas Admit Provider: Usman Ruelas Primary Care Provider: Yasir Shine Other Interventions: Discharge Summary Assessment (RN) Last Done: 05/06/25 11:30 Coding Level of Care Code 22135 IN/OBS DISCH 30 MIN/LESS Diagnoses Urinary retention R33.9
[2025-05-06 11:43] VITALS: BP 166/70; PULSE 94; RESP 16; TEMP 97.9; O2SAT 98
== END 2025-05-06 11:58 | disposition home or self-care (01) ==
LOC: ASU 11:47 → 3N 11:47
DX: Z79.899 Other long term (current) drug therapy; Z88.8 Allergy status to other drugs, medicaments and biological substances; E78.5 Hyperlipidemia, unspecified; R33.9 Retention of urine, unspecified; I25.10 Atherosclerotic heart disease of native coronary artery without angina pectoris; Z79.4 Long term (current) use of insulin; E11.9 Type 2 diabetes mellitus without complications; Z88.6 Allergy status to analgesic agent; Z91.040 Latex allergy status; N40.1 Benign prostatic hyperplasia with lower urinary tract symptoms